=== PATIENT | female | born 1935 | race Caucasian/White ===

== ENCOUNTER → 2017-03-06 | Outpatient (CLI) | payer OTHER ==
[2013-07-20 15:18] VITALS: BP 162/75
--- NOTE | 2017-03-09 08:01 | NM ---
HISTORY: thoracic compression fracture Study: Nuclear medicine total body bone scan Comparison: Chest CT March 06, 2017 Technique: New patient received intravenous injection of 25.3 millicuries technetium 99 MDP. Images were obtained 3 hours post injection. Findings: Abnormal tracer concentration is identified in the T11 vertebral body where there is noted to be a m arked compression on the CT of the same date. On [place] CT there does appear to be compromise of the A P diameter of the spinal canal. Evaluation with MRI is recommended for further evaluation. No othe r significant areas of abnormal tracer concentration are identified. IMPRESSION: Abnormal tracer concentration in T11 where there is a compression fracture on plain film the suggest ing a more recent rather than remote onset Compromise to some extent of the AP diameter of the spinal canal visualized on the accompanying CT o f the chest for which MRI is recommended for further evaluation. Reported By:
--- NOTE | 2017-03-09 08:08 | CT ---
HISTORY: Shortness of breath Study: Chest CT without contrast Comparison: None Technique: Axial non contrast images with coronal and sagittal reformats. Dose reduction procedures were used with MA/kv adjusted for body size. Findings: Examination of the mediastinum demonstrated no evidence for mediastinal masses, lymphadenopathy, or hilar lymphadenopathy. There is a large hiatal hernia present. No pleural effusions are identified. No chest wall or axillary abnormality is identified. Those portions of the upper abdominal organs vi sualized were within normal limits to the limitations of an unenhanced examination. There is a compr ession fracture of T11 with a posterior displaced fragment that contributes to moderate compromise o f the AP diameter of the thoracic spinal canal. MRI of the thoracic spine is recommended for further evaluation. Examination of the lung jimenez demonstrated mild hyperinflation to be present. No signi ficant nodules, alveolar infiltrates, masses, peribronchial thickening, or bronchiectasis is identif ied. IMPRESSION: Lungs mildly hyperinflated but clear Compression fracture of T11 which demonstrates some compromise of the AP diameter of the thoracic sp inal canal full which MRI the thoracic spine is recommended for further evaluation. Large hiatal hernia Reported By:
== END ==
LOC: RAD 08:42
PROVIDERS: ATTEND Specialist
DX: S22.080A Wedge compression fracture of T11-T12 vertebra, initial encounter for closed fracture (principal); X58.XXXA Exposure to other specified factors, initial encounter; J98.4 Other disorders of lung
CPT/HCPCS: 71250; 78306